=== PATIENT | female | born 1990 | race Caucasian/White ===

== ENCOUNTER → 2024-09-26 | Outpatient (CLI) | payer BC, MEDICAID, SELFPAY ==
--- NOTE | 2024-09-26 09:58 | XR_ITS ---
Examination: Fingers, right hand first digit 3 views Technique: AP, oblique, lateral views right hand first digit 3 views. Exam date and time: September 26, 2024 1002 hours INDICATIONS: Right thumb pain beginning one month ago. FINDINGS: No fracture or dislocation Moderate osteoarthritis first carpometacarpal joint Mild osteoarthritis first metacarpophalangeal joint and interphalangeal joint thumb IMPRESSION: Osteoarthritis as above
== END | disposition home or self-care (01) ==
PROVIDERS: PCP Internal Medicine; Referring Provider Internal Medicine; Visit Provider Internal Medicine
DX: M19.041 Primary osteoarthritis, right hand (principal); M18.11 Unilateral primary osteoarthritis of first carpometacarpal joint, right hand
CPT/HCPCS: 73140

== ENCOUNTER → 2025-03-07 | Outpatient (CLI) | payer BC, MEDICAID, SELFPAY ==
--- NOTE | 2025-03-07 10:18 | XR_ITS ---
Examination: Abdomen sonogram, complete Date and time of exam: March 07, 2025 1022 hours INDICATIONS: Left upper abdominal pain beginning 2 weeks ago. Technique: Multiple real-time grayscale transabdominal sonographic images of the abdomen have been obtained. Findings: Absent gallbladder Normal common bile duct 0.4 cm Pancreatic head 1.8 cm Aorta not enlarged Liver 13.8 cm fatty infiltration Normal hepatopedal portal venous flow Patent IVC Right kidney 12.3 cm cortex 1.7 cm Left kidney 12.0 cm cortex 1.9 cm Spleen 8.8 cm IMPRESSION: Normal common bile duct Fatty liver no focal liver lesions
== END | disposition home or self-care (01) ==
LOC: CDIM 10:08
PROVIDERS: PCP Internal Medicine; Referring Provider Internal Medicine; Visit Provider Internal Medicine
DX: K76.0 Fatty (change of) liver, not elsewhere classified (principal)
CPT/HCPCS: 76700